=== PATIENT | female | born 1995 | race Caucasian/White ===

== ENCOUNTER → 2017-12-23 20:10 | Outpatient (CLI) | payer MEDICAID ==
[2014-09-05 15:23] VITALS: BMI 26.4
[~2017-12-23 20:10] MED LIST: BACTRIM DS TABL1 TAB PO; CIPRO500 MG PO; CYCLOBENZAPRINE10 MG PO; HYDROCODONE-APA1 TAB PO; IBUPROFEN600 MG PO; NORCO 10/325 TA1 TA1 PO; PERCOCET 5-3251 TAB PO; PRENATAL COMPLE1 TAB PO
[2017-12-23 21:09] LABS: APPEARANCE CLEAR (CLEAR); BILIRUBIN NEGATIVE (NEGATIVE); COLOR DK YELLOW (YELLOW); GLUCOSE NEGATIVE (NEGATIVE); KETONE NEGATIVE (NEGATIVE); NITRITE NEGATIVE (NEGATIVE); PROTEIN NEGATIVE (NEGATIVE); SPECIFIC GRAVITY 1.015 (1.005-1.020); UROBILINOGEN NORMAL (NORMAL)
[2017-12-23 21:10] LABS: EPITHELIAL CELLS 0-5 /hpf (0-5); RED CELLS - URINE 0-5 /hpf (0-5)
[2017-12-23 21:11] LABS: BACTERIA FEW /hpf (NONE SEEN); MUCUS <1+ /lpf (NONE SEEN)
[2017-12-23 21:17] LABS: UDS - AMPHET NEGATIVE QUAL (NEGATIVE); UDS - BARB NEGATIVE QUAL (NEGATIVE); UDS - BENZO NEGATIVE QUAL (NEGATIVE); UDS - COCAINE NEGATIVE QUAL (NEGATIVE); UDS - OPIATE NEGATIVE QUAL (NEGATIVE); UDS - PCP NEGATIVE QUAL (NEGATIVE); UDS - THC POSITIVE QUAL (NEGATIVE)
== END | disposition home or self-care (01) ==
LOC: D.LDO 20:10
PROVIDERS: Obstetrics & Gynecology
DX: O26.893 Other specified pregnancy related conditions, third trimester (principal); Z3A.36 36 weeks gestation of pregnancy

== ENCOUNTER 2018-01-14 04:58 | Inpatient (IN) | payer MEDICAID ==
[~2018-01-14] VITALS: Ht 154.9 cm; Wt 63.0 kg
--- NOTE | ~2018-01-14 | OP ---
PATIENT NAME: LIZBETH KUMAR MEDICAL RECORD: [id number] :89 LOCATION:[facility] ADMISSION DATE:01/14/18 SURGEON: ADEN DEL VALLE MD DATE OF OPERATION: 01/14/2018 PREOPERATIVE DIAGNOSES: intolerance to labor. POSTOPERATIVE DIAGNOSIS: intolerance to labor. PROCEDURE: Primary low transverse section. SURGEON: Aden Del Valle MD ESTIMATED BLOOD LOSS: 1000 cc. ANESTHESIA: By regional. INTRAVENOUS FLUIDS: Per anesthesia record. FINDINGS: 1. A viable infant. 2. Nuchal cord times 1. 3. Grossly normal adnexa bilaterally. 4. Placenta delivered manually intact, 3-vessel cord noted. COMPLICATIONS: None apparent. DESCRIPTION OF THE PROCEDURE: The patient was taken to the operating room where regional anesthesia was achieved without difficulty. The patient was then prepped and draped in normal sterile fashion in dorsal supine position. Kiser catheter was then placed and was draining freely. SCDs were on and functioning appropriately. Following prep and drape, a Pfannenstiel skin incision was made, extended downward to the underlying subcutaneous fat to level of the fascia, which was then excised in the midline. The fascial incision was then excised bilaterally using the Means scissors. Superior and inferior aspect of the fascial incision were then grasped with Meme clamps times 2, tented upward, and sharply dissected from the underlying rectus muscle using the Means scissors and the Bovie cautery. Rectus muscles were then bluntly in the midline and the peritoneum entered sharply at the superior aspect of the incision using the Metzenbaum scissors. At this point, the peritoneal incision was extended bilaterally using the Metzenbaum scissors and a bladder flap was created by excising the anterior leaf of the broad ligament across the lower uterine segment. A bladder blade was then placed into the pelvis and low transverse incision was made with the scalpel and extended superiorly and inferiorly using the Pelosi method. At this point, the infant's head was delivered atraumatically and bulb suction was performed. The body was then delivered atraumatically. The was bulb suctioned again. Cord was clamped times 2, cut, and the was handed to the awaiting nursery team. At this point, the placenta was removed manually intact, 3-vessel cord was noted. The uterus exterior as cleared of all clots and debris and vigorously massaged until good uterine tone was noted. The uterine incision was then repaired with 0 Vicryl in a running locked fashion times 2 with good hemostasis noted. The posterior cul-de-sac was then thoroughly irrigated and the uterus replaced into the OPERATIVE REPORT [id number] LIZBETH KUMAR pelvis. Counts were correct times 2 for laps, sponges, instruments, and needles. The fascia was then repaired with 0 loop PDS times 1 and the skin repaired with cheyanne. The patient tolerated procedure well, transferred to the postanesthesia recovery stable. TRANSINT:[id number] Voice Confirmation ID: [id number] DOCUMENT ID: [id number] ADEN DEL VALLE MD CC: [id number] DICTATION DATE: 02/07/18539 WATERMASTER: 02/07/18714 DIS IN 01/16/18 [facility] [address] [place] [address]
--- NOTE | ~2018-01-14 | DS ---
PATIENT:LIZBETH KUMAR :89 MEDICAL RECORD: [id number] DISCHARGE SUMMARY ADMISSION DATE: 01/14/18 DISCHARGE DATE: 01/16/18 SUBJECTIVE: The patient was admitted on 01/14/2018. A 22-year-old at 39 weeks and 3 days, admitted for induction of labor per patient wishes. The patient was noted to be A positive, group B strep negative, and rubella immune. PAST MEDICAL HISTORY: The patient had a past medical history significant for: 1. Nephrolithiasis. 2. Marijuana use. 3. Depression. PAST SURGICAL HISTORY: The patient reported surgical history significant for a cyst removal. MEDICATIONS: Include Flexeril and vitamins. FAMILY HISTORY: The patient had a family history significant for a parent with cardiovascular disease. SOCIAL HISTORY: Significant for being a former tobacco user and current marijuana user. PHYSICAL EXAMINATION: VITAL SIGNS: On initial assessment, vital signs were found to be stable. The patient was afebrile and normotensive. LUNGS: Clear to auscultation. CARDIOVASCULAR: Regular rate and rhythm. PELVIC: Uterus was appropriately sized and nontender. EXTREMITIES: Lower extremities were free of Homans sign, erythema, or swelling. Initial assessment revealed a category 1 tracing. LABORATORY DATA: Admit hemoglobin was found to be 11.1 with a platelet count of 182. Negative urine drug screen was noted. ASSESSMENT AND PLAN: At that time, 1. Term intrauterine at 39 weeks and 3 days. 2. Induction of labor per patient wishes. 3. Positive history of depression. 4. Positive marijuana use. 5. History of a right renal stone. PLAN: At that time was for Pitocin induction of labor. Risks and benefits including increased risk of were explained. The patient voiced understanding and consent. wellbeing was reassuring with a category 1 tracing. The patient had been placed on Pitocin for 14 hours. At that time began having recurrent deceleration, at which time the Pitocin was discontinued. I discussed the clinical situation with the patient. The patient opted to proceed at that time with . Risks and benefits were explained. DISCHARGE SUMMARY REPORT [id number] LIZBETH KUMAR Following stopping the Pitocin, a category 1 tracing was noted. Operative report is as dictated and on the chart. The patient did well overnight on postop day #0, on Dilaudid GERIATRIC ASSISTANT, IV Toradol, tolerating clear liquid diet and IV fluids. Kiser catheter was in overnight and urine output was adequate. SCDs were on and functioning appropriately. On the morning postop day #1, the patient continued to do well. Vital signs are stable. The patient was afebrile. Hemoglobin was stable. Uterus was infraumbilical and appropriately tender. Incision was clean, dry, and intact. The patient was advanced to general diet and p.o. pain meds. Kiser catheter was discontinued and ambulation begun. The patient continued to improve overnight on postop day #1. On the morning of postop day #2, the patient remained afebrile and normotensive. Incision was clean, dry, and intact. The patient reported only minimal lochia at that time. Uterus was infraumbilical and appropriately tender. The patient was tolerating p.o. pain meds and general diet. The patient was discharged on postop day #2 with instructions to follow up for staple removal. TRANSINT:[id number] Voice Confirmation ID: [id number] DOCUMENT ID: [id number] MELISSA CHILD MD CC: [id number] DICTATION DATE: 02/07/18 0544 [employer] LINE WORKER: 02/07/18 0752 DIS IN 01/16/18 [place] [id number] [place] [id number]
[~2018-01-14 04:58] MED LIST changes: -CYCLOBENZAPRINE10 MG PO; -HYDROCODONE-APA1 TAB PO; -IBUPROFEN600 MG PO
[2018-01-14 05:53] LABS: HEMATOCRIT 32.8 % (36.0-48.0); HEMOGLOBIN 11.1 g/dL (12-16); MCHC 33.8 g/dL (31.0-37.0); MCV 91.6 fL (80.0-100.0); MEAN PLATELET VOLUME 11.2 fL (7.4-10.4); RBC 3.58 10x6/uL (4.00-5.40); RDW 13.5 % (11.5-14.5); WBC 12.5 10x3/uL (4.8-10.8)
[2018-01-14] MEDS ORDERED: CYCLOBENZAPRINE10 MG PO (06:00)
[2018-01-14 06:02] VITALS: BP 123/78; BMI 26.3
[2018-01-14 06:12] LABS: UDS - AMPHET NEGATIVE QUAL (NEGATIVE); UDS - BARB NEGATIVE QUAL (NEGATIVE); UDS - BENZO NEGATIVE QUAL (NEGATIVE); UDS - COCAINE NEGATIVE QUAL (NEGATIVE); UDS - OPIATE NEGATIVE QUAL (NEGATIVE); UDS - PCP NEGATIVE QUAL (NEGATIVE); UDS - THC NEGATIVE QUAL (NEGATIVE)
[2018-01-14 07:08] LABS: APPEARANCE HAZY (CLEAR); BILIRUBIN NEGATIVE (NEGATIVE); COLOR YELLOW (YELLOW); GLUCOSE NEGATIVE (NEGATIVE); KETONE NEGATIVE (NEGATIVE); NITRITE NEGATIVE (NEGATIVE); PROTEIN NEGATIVE (NEGATIVE); UROBILINOGEN NORMAL (NORMAL)
[2018-01-14 07:09] LABS: AMORPHOUS SEDIMENT <1+ /lpf (NONE SEEN); BACTERIA MODERATE /hpf (NONE SEEN); EPITHELIAL CELLS 0-5 /hpf (0-5); MUCUS <1+ /lpf (NONE SEEN); RED CELLS - URINE RARE /hpf (0-5)
[2018-01-14 13:40] VITALS: Ht 154.9 cm; Wt 63.0 kg
[2018-01-14 23:37] VITALS: BP 138/95
[2018-01-15 00:39] VITALS: BP 137/84
[2018-01-15 01:39] VITALS: BP 132/78
[2018-01-15 02:39] VITALS: BP 132/81
[2018-01-15 03:39] VITALS: BP 138/76
[2018-01-15 06:17] LABS: RAPID PLASMA REAGIN Non Reactive (Non Reactive)
[2018-01-15 06:19] LABS: BASOPHILS 0.1 % (0-2); EOSINOPHILS 0.2 % (0-7); HEMATOCRIT 26.5 % (36.0-48.0); HEMOGLOBIN 9.2 g/dL (12-16); IMMATURE GRANULOCYTES 0.4 % (0-5); LYMPHOCYTES 11.4 % (15-50); MCH 31.6 pg (26.0-34.0); MCHC 34.7 g/dL (31.0-37.0); MCV 91.1 fL (80.0-100.0); MEAN PLATELET VOLUME 10.9 fL (7.4-10.4); MONOCYTES 6.5 % (2-11); NEUTROPHILS 81.4 % (40-80); RBC 2.91 10x6/uL (4.00-5.40); RDW 13.6 % (11.5-14.5)
[2018-01-15 06:24] LABS: PLATELET COUNT 137 10x3/uL (130-400)
[2018-01-15 06:27] VITALS: BP 135/80
[2018-01-15 12:53] LABS: BASOPHILS 0.1 % (0-2); EOSINOPHILS 0.3 % (0-7); HEMATOCRIT 26.8 % (36.0-48.0); HEMOGLOBIN 9.2 g/dL (12-16); IMMATURE GRANULOCYTES 0.5 % (0-5); LYMPHOCYTES 9.1 % (15-50); MCHC 34.3 g/dL (31.0-37.0); MCV 90.2 fL (80.0-100.0); MEAN PLATELET VOLUME 10.6 fL (7.4-10.4); MONOCYTES 6.7 % (2-11); NEUTROPHILS 83.3 % (40-80); PLATELET COUNT 133 10x3/uL (130-400); RBC 2.97 10x6/uL (4.00-5.40); RDW 13.5 % (11.5-14.5); WBC 14.7 10x3/uL (4.8-10.8)
[2018-01-15 19:15] VITALS: BP 136/85
[2018-01-16 04:35] VITALS: BP 117/74
[2018-01-16 08:23] VITALS: BP 128/89
[2018-01-16] MEDS ORDERED: HYDROCODONE-APA1 TAB PO (10:52)
[2018-01-16] MEDS ORDERED: IBUPROFEN600 MG PO (10:53)
== END 2018-01-16 17:00 | disposition home or self-care (01) | DRG 765 ==
LOC: D.LD 04:58
PROVIDERS: Obstetrics & Gynecology
PROC: 10D00Z1 Extraction of Products of Conception, Low, Open Approach (ICD-10-PCS; 2018-01-14)
PROC: 3E0P7VZ Introduction of Hormone into Female Reproductive, Via Natural or Artificial Opening (ICD-10-PCS; principal; 2018-01-14 21:00)
DX: O75.3 Other infection during labor (principal); O99.324 Drug use complicating childbirth; Z3A.39 39 weeks gestation of pregnancy; Z37.0 Single live birth; O76 Abnormality in fetal heart rate and rhythm complicating labor and delivery; O69.81X0 Labor and delivery complicated by cord around neck, without compression, not applicable or unspecified; F12.90 Cannabis use, unspecified, uncomplicated; Z87.891 Personal history of nicotine dependence